=== PATIENT | male | born 1955 | race Caucasian/White ===

== ENCOUNTER 2016-07-13 05:59 | Day surgery (SDC) | payer BC ==
[2016-07-13] MEDS ORDERED: LACTATED RINGERS 1,000 ML ONE (06:46)
[2016-07-13] MEDS ORDERED: MIDAZOLAM INJ 5 MG/5 ML VIAL ONE (07:38)
--- NOTE | 2016-07-13 08:38 | OP ---
DATE OF PROCEDURE: 07/13/16 PREPROCEDURE DIAGNOSIS: 1. History of colonic polyp. POSTPROCEDURE DIAGNOSIS: 1. History of colonic polyp. PROCEDURE: 1. Colonoscopy to the cecum. SURGEON: Xu Hartman MD. ANESTHESIA: Monitored anesthesia care. FINDINGS: With the patient under adequate sedation, digital exam showed normal anal canal with no rectal masses. Normal sized prostate. The rectum was unremarkable. The sigmoid colon showed no clinically significant diverticulosis. Descending colon normal, splenic flexure normal, transverse colon normal, ascending colon and cecum were reached with ileocecal valve visualized. The appendix opening was identified. No lesions seen in the entire colon. Careful examination of both flexure areas did not show any abnormality. The colon preparation was good. Examination of the colon was done to good advantage. Total scope withdrawal time was 6 minutes. IMPRESSION: Totally normal colonoscopy with no evidence of recurrent colonic polyp. RECOMMENDATION: Followup colonoscopy in 5 to 7 years. #[id number] cc: MD Xu Artis MD MTDD
[2016-07-13 09:16] VITALS: BP 150/82; TEMP 97.6; O2SAT 95
[2016-07-13] MEDS ORDERED: LIDOCAINE 1% 10 ML VIAL INJ ONE (12:00)
[2016-07-13] MEDS ORDERED: PROPOFOL 200 MG/20 ML VIAL IV ONE (12:00)
== END 2016-07-13 08:55 | disposition home or self-care (01) ==
LOC: AMB 05:59
PROVIDERS: ATTEND Internal Medicine Gastroenterology
DX: Z12.11 Encounter for screening for malignant neoplasm of colon (principal); I10 Essential (primary) hypertension; E78.00 Pure hypercholesterolemia, unspecified; E11.9 Type 2 diabetes mellitus without complications; K21.9 Gastro-esophageal reflux disease without esophagitis; Z86.010 Personal history of colon polyps; Z88.5 Allergy status to narcotic agent; Z88.8 Allergy status to other drugs, medicaments and biological substances; Z79.899 Other long term (current) drug therapy

== ENCOUNTER → 2016-08-13 | Outpatient (CLI) | payer BC | END | disposition home or self-care (01) | LOC: GMAL 06:44 | PROVIDERS: ATTEND Family Medicine | DX: I10 Essential (primary) hypertension (principal); E11.9 Type 2 diabetes mellitus without complications; E29.1 Testicular hypofunction ==

== ENCOUNTER → 2016-08-23 | Outpatient (CLI) | payer BC | END | disposition home or self-care (01) | LOC: GMAL 16:56 | PROVIDERS: ATTEND Family Medicine | DX: R97.20 Elevated prostate specific antigen [PSA] (principal) ==

== ENCOUNTER → 2016-11-12 | Outpatient (CLI) | payer BC | END | disposition home or self-care (01) | LOC: LAB 07:16 | PROVIDERS: ATTEND Family Medicine | DX: E78.2 Mixed hyperlipidemia (principal); I10 Essential (primary) hypertension; E11.9 Type 2 diabetes mellitus without complications; E55.9 Vitamin D deficiency, unspecified ==

== ENCOUNTER → 2017-03-18 | Outpatient (CLI) | payer BC | END | disposition home or self-care (01) | LOC: GMAL 07:13 | PROVIDERS: ATTEND Family Medicine | DX: E78.2 Mixed hyperlipidemia (principal); I10 Essential (primary) hypertension; E11.9 Type 2 diabetes mellitus without complications ==

== ENCOUNTER → 2017-07-22 | Outpatient (CLI) | payer BC | END | disposition home or self-care (01) | LOC: LAB.O 07:22 | PROVIDERS: ATTEND Family Medicine | DX: E78.2 Mixed hyperlipidemia (principal); I10 Essential (primary) hypertension; E11.9 Type 2 diabetes mellitus without complications ==

== ENCOUNTER 2017-10-15 15:05 | Emergency (ER) | payer BC ==
[2017-10-15] MEDS ORDERED: ATORVASTATIN 20 MG TAB PO ONE (15:18)
[2017-10-15] MEDS ORDERED: ASPIRIN TABLET 325 MG TAB PO ONE (15:18)
[2017-10-15] MEDS ORDERED: METOPROLOL TARTRATE 50 MG TAB PO ONE (15:18)
[2017-10-15] MEDS: NITROGLYCERIN 0.4 MG 25 EA TAB SL ONE ×2 (15:22→15:57)
[2017-10-15] MEDS ORDERED: KETOROLAC TROMETHAMINE INJ 30 MG/ML VIAL IV ONE (15:45)
--- NOTE | 2017-10-15 15:59 | RAD ---
PROCEDURE: XR CHEST 1 VIEW HISTORY: chest pain COMPARISON: 07/12/2016 TECHNIQUE: Single projection of the chest was done. FINDINGS: The lung banuelos are well inflated . There are no discrete airspace infiltrates, pneumothoraces or pleural effusions. The pulmonary vascularity is normal. The cardiomediastinal silhouette is unremarkable for patient's age and sex. IMPRESSION: There is no acute pleural-parenchymal process seen in the imaged lung banuelos. Location of Interpretation: Teler[facility]iology Electronically signed by: Jignesh Trevizo MD 10/15/2017 3:58 PM CDT Workstation: [id number]
[2017-10-15] MEDS ORDERED: ALUM & MAG HYDROX-SIMETHICONE 30 ML, LIDOCAINE VISCOUS 2% 15 ML PO ONE ×2 (16:11)
[2017-10-15] MEDS ORDERED: ALUM & MAG HYDROX-SIMETHICONE 30 ML UD ONE (16:56)
[2017-10-15] MEDS ORDERED: LIDOCAINE HCL 2% (MOUTH-THROAT) 15 ML UD ONE (16:56)
--- NOTE | 2017-10-15 17:32 | ED.PDOC ---
History of Present Illness - General Chief Complaint: Chest Pain/MS Time Seen by Provider: 10/15/17 15:17 Source: patient, family Exam Limitations: no limitations - History of Present Illness Initial Comments: Patient comes in with R sided sharp chest pain at the base of his costal angle since about 11 am. Pain is there constantly but at times worsens to moderate/ severe. Patient has some associated nausea and shortness of breath. He had similar illness several years ago and work up did not find cause. He does have known gallbladder stones but in the past it has not felt like this. He has never had heart problems. He has DM, HTN, Hyperlipidemia but no family history of cardiac disease. He has no cough, congestion, fever, chills, or recent injury to the chest. Timing/Duration: 4-6 hours Severity: moderate Location: other - RL chest wall Activities at Onset: rest Prior Chest Pain/Cardiac Workup: no prior chest pain Improving Factors: nothing Worsening Factors: movement Nitro Today/Relief: provided by ED, no relief Aspirin Treatment Today: provided by ED Associated Symptoms: nausea/vomiting, shortness of breath Allergies/Adverse Reactions: Allergies Morphine and Related Adverse Reaction (Intermediate, Verified 03/23/16 10:42) Nausea/Vomiting prolonged nausea and vomiting Opioids Adverse Reaction (Intermediate, Uncoded 03/23/16 10:55) Nausea/Vomiting Prolonged nausea and vomiting Home Medications: Ambulatory Orders Glimepiride [Amaryl] 4 mg PO BID 03/22/16 Lisinopril 10 mg PO DAILY 03/22/16 Sitagliptin-Metformin HCl [Janumet] 1 tab PO BID 03/22/16 Doxycycline (Monohydrate) [Doxycycline Monohydrate] 100 mg PO BID 07/12/16 Levothyroxine Sodium 50 mcg PO DAILY 07/12/16 Review of Systems - Review of Systems Constitutional: States: see HPI. Denies: chills, fever EENTM: States: no symptoms reported Respiratory: States: short of breath. Denies: cough, wheezing Cardiology: States: chest pain. Denies: edema, palpitations, syncope Gastrointestinal/Abdominal: States: nausea. Denies: abdominal pain, constipation, diarrhea, vomiting Genitourinary: States: no symptoms reported Musculoskeletal: States: no symptoms reported Skin: States: no symptoms reported Past Medical History (General) - Patient Medical History Hx Congestive Heart Failure: No Hx Diabetes: Yes Hx MRSA: No Physical Exam - Physical Exam General Appearance: Alert, Anxious Eyes, Ears, Nose, Throat Exam: PERRL/EOMI, normal ENT inspection, TMs normal, pharynx normal Neck: non-tender, full range of motion, supple, normal inspection Respiratory: chest non-tender, lungs clear, normal breath sounds, no respiratory distress, no accessory muscle use Cardiovascular/Chest: normal peripheral pulses, regular rate, rhythm, no edema, no gallop, no JVD Peripheral Pulses: radial,right: 2+ Gastrointestinal/Abdominal: normal bowel sounds, soft, rebound, tenderness, hernia - mildly tender to palpation on RUQ Extremity: normal range of motion, non-tender, no pedal edema Neurologic: alert, oriented x 3 Progress - Progress Progress: 10/15/17 18:44 10/15/17 15:30 EKG STAT Laboratory Results WBC 10.9 K/mm3 (4.8-10.8) H 10/15/17 15:38 RBC 5.83 M/mm3 (4.70-6.10) 10/15/17 15:38 Hgb 17.4 gm/dL (14.0-18.0) 10/15/17 15:38 Hct 50.8 % (42.0-52.0) 10/15/17 15:38 MCV 87.1 fl (80.0-94.0) 10/15/17 15:38 MCH 29.9 pg (27.0-31.0) 10/15/17 15:38 MCHC 34.3 g/dL (33.0-37.0) 10/15/17 15:38 RDW 13.5 % (11.5-14.5) 10/15/17 15:38 Plt Count 253 K/mm3A (130-400) 10/15/17 15:38 MPV 8.1 fl (7.40-10.4) 10/15/17 15:38 Absolute Neuts (auto) 9.00 K/uL (1.8-6.8) H 10/15/17 15:38 Absolute Lymphs (auto) 1.10 K/uL (1.0-3.4) 10/15/17 15:38 Absolute Monos (auto) 0.60 K/uL (0.2-0.8) 10/15/17 15:38 Absolute Eos (auto) 0.20 K/uL (0.0-0.4) 10/15/17 15:38 Absolute Basos (auto) 0.00 K/uL (0.0-0.1) 10/15/17 15:38 Neutrophils % 82.2 % (42.0-78.0) H 10/15/17 15:38 Lymphocytes % 9.6 % (20.0-50.0) L 10/15/17 15:38 Monocytes % 5.9 % (2.0-9.0) 10/15/17 15:38 Eosinophils % 2.0 % (1.0-5.0) 10/15/17 15:38 Basophils % 0.3 % (0.0-2.0) 10/15/17 15:38 PT 10.9 SECONDS (9.4-12.5) 10/15/17 15:38 INR 0.940 10/15/17 15:38 PTT (SP) 36.1 SECONDS (25.1-36.5) 10/15/17 15:38 D-Dimer, Quantitative < 230 ng/mL (0-230) 10/15/17 15:38 Sodium 136 mmol/L (135-145) 10/15/17 15:38 Potassium 3.9 mmol/L (3.6-5.0) 10/15/17 15:38 Chloride 100 mmol/L (101-111) L 10/15/17 15:38 Carbon Dioxide 27 mmol/L (21-31) 10/15/17 15:38 Anion Gap 12.9 (12-18) 10/15/17 15:38 BUN 13 mg/dL (7-18) 10/15/17 15:38 Creatinine 0.84 mg/dL (0.6-1.3) 10/15/17 15:38 BUN/Creatinine Ratio 15.5 (10-20) 10/15/17 15:38 Random Glucose 331 mg/dL (70-105) H 10/15/17 15:38 Serum Osmolality 285.0 mOsm/L (275-295) 10/15/17 15:38 Calcium 9.4 mg/dL (8.4-10.2) 10/15/17 15:38 Magnesium 1.8 mg/dL (1.8-2.5) 10/15/17 15:38 Creatine Kinase 94 IU/L (38-174) 10/15/17 18:03 CK-MB (CK-2) 5.6 ng/mL (0.0-4.4) H* 10/15/17 18:03 CK-MB (CK-2) % Not Reportable 10/15/17 15:38 Troponin I 0.03 ng/mL (0.01-0.05) 10/15/17 18:03 10/15/17 18:44 Nitro did not help pain but GI cocktail did. Discussed abnormal EKG with patient and likelihood that he has had some damage done at some time. However, cardiac enzymes are negative x 2 here and pain is now gone. He was given EKG copy to to take to his PCP to discuss Cardiology work up. Departure - Departure Clinical Impression: Biliary colic Disposition: Discharge to Home or Self Care Condition: Good Departure Forms: ED Discharge - Pt. Copy, Patient Portal Self Enrollment Instructions: DI for Chest Pain Diet: diabetic diet Referrals: Daniel Miranda III, MD [Primary Care Provider] - 1-2 Weeks Home Medications: Ambulatory Orders Glimepiride [Amaryl] 4 mg PO BID 03/22/16 Lisinopril 10 mg PO DAILY 03/22/16 Sitagliptin-Metformin HCl [Janumet] 1 tab PO BID 03/22/16 Doxycycline (Monohydrate) [Doxycycline Monohydrate] 100 mg PO BID 07/12/16 Levothyroxine Sodium 50 mcg PO DAILY 07/12/16 Additional Instructions: Follow up in 3-4 days with PCP to discuss possible work up for abnormal EKG. However, enzymes negative x 2 here and chest pain consistent with billiary collic. Patient has known cholelithiasis. Pain did not respond to nitro but did go away with GI cocktail. Patient to return to ER for return of pain, shortness of breath, diaphoresis, intractable emesis.
[2017-10-15 19:09] VITALS: BP 132/70; O2SAT 96
[2017-10-15 19:19] VITALS: TEMP 98.8
== END 2017-10-15 19:05 | disposition home or self-care (01) ==
LOC: ER 15:05
DX: K80.50 Calculus of bile duct without cholangitis or cholecystitis without obstruction (principal); R94.31 Abnormal electrocardiogram [ECG] [EKG]; E11.9 Type 2 diabetes mellitus without complications; I10 Essential (primary) hypertension; E78.5 Hyperlipidemia, unspecified
CPT/HCPCS: 36415; 71045; 80048; 82550; 82553; 84484; 85025; 85379; 85610; 85730; 93005; J1885

== ENCOUNTER → 2017-10-18 | Outpatient (CLI) | payer BC ==
--- NOTE | 2017-10-18 10:24 | US ---
EXAM DESCRIPTION: Gall Bladder CLINICAL HISTORY: CALC OF GB W/O CHOLECYSTITIS W/O OBST COMPARISON: None Available. TECHNIQUE: Right upper quadrant ultrasound FINDINGS: Pancreas: Pancreatic bed is obscured by overlying bowel gas. No fluid collection is seen in the expected location of the pancreas. Aorta/inferior vena cava: No aortic aneurysm. Inferior vena cava is visible by the liver. Bowel gas obscures much of the length of these vessels. Liver: The liver is coarse in texture with increased echogenicity consistent with diffuse hepatic steatosis. There is sparing near the gallbladder. No focal liver lesion or intrahepatic bile duct dilatation. No liver surface irregularity. Normal appearance of the portal vein and hepatic veins. Gallbladder: Gallbladder is abnormal containing small shadowing stones within the lumen. Gallbladder wall is thickened measured at 6 mm. Sonographic Cruz sign is not known but these findings are worrisome for acute cholecystitis. For clinically equivocal cases, radionuclide hepatobiliary scan may be helpful. Common bile duct: Normal caliber measuring 7.4 mm. Only a short segment of the duct is visible. Bowel gas obscures the distal duct. No stone is seen within the lumen. Right kidney: Renal length is 11.1 cm. Normal cortical echogenicity. Cortical thickness is normal. No hydronephrosis is seen. No renal mass or shadowing calculus. Sonographic Cruz sign was reported as negative. IMPRESSION: Gallstones with thick walled gallbladder. See above. Diffuse hepatic steatosis. Electronically signed by: Geraldo Meredith MD 10/18/2017 10:22 AM CDT
== END ==
LOC: US 07:56
PROVIDERS: ATTEND Nurse Practitioner Family
DX: K80.20 Calculus of gallbladder without cholecystitis without obstruction (principal)

== ENCOUNTER 2017-10-21 00:29 | Emergency (ER) | payer BC ==
[2017-10-21] MEDS ORDERED: SODIUM CHLORIDE 0.9% 1000ML 1,000 ML IVS ONE ×2 (00:48→01:45)
[2017-10-21] MEDS ORDERED: KETOROLAC TROMETHAMINE INJ 30 MG/ML VIAL IV ONE (00:48)
[2017-10-21] MEDS ORDERED: ONDANSETRON ODT 8 MG TAB SL ONE (00:48)
[2017-10-21] MEDS ORDERED: PIPERACILLIN/TAZOBACTAM 4.5 GM in SODIUM CHLORIDE 0.9% 100ML 100 ML IVPB ONE (01:14)
[2017-10-21] MEDS ORDERED: PIPERACILLIN/TAZOBACTAM 2.25 GM VIAL IVPB ONE (01:29)
[2017-10-21] MEDS ORDERED: SODIUM CHLORIDE 0.9% 100ML 100 ML IVPB ONE (01:29)
--- NOTE | 2017-10-21 01:42 | RAD ---
EXAM: TWO VIEW SINGLE and UPRIGHT ABDOMEN AND PA CHEST RADIOGRAPHS CLINICAL INDICATION: Abdominal pain for 4 days. COMPARISON: No recent comparisons are available. FINDINGS: Cardiac size and pulmonary vasculature are normal. Lungs are clear. No pleural effusions or pneumothorax. Bones of the chest are intact on this single view. Several loops of gas-filled moderately distended bowel in the mid to left abdomen suspicious for reactive small bowel ileus secondary to underlying inflammatory process. No mechanical bowel obstruction or free peritoneal gas. IMPRESSION: 1. Suspect left abdominal reactive small bowel ileus. Postcontrast abdomen and pelvic CT would prove useful for further evaluation of possible underlying abdominal inflammatory process. 2. No mechanical bowel obstruction or extraluminal bowel gas. 3. Normal PA chest radiograph. Electronically signed by: Jose Raul Berrios MD 10/21/2017 1:41 AM CDT
[2017-10-21] MEDS ORDERED: INSULIN LISPRO 100 UNITS/ML PEN SUBCU ONE (01:43)
--- NOTE | 2017-10-21 02:30 | CT ---
NONCONTRAST ABDOMEN AND PELVIC CT EXAMINATION. HISTORY: Right upper quadrant abdominal pain. Suspect biliary disease. COMPARISONS: Today's abdomen radiographs. Gallbladder ultrasound of October 2017. PROCEDURE: Using helical technique, thin section axial images were performed through the abdomen and pelvis without the administration of intravenous or oral contrast material. FINDINGS: There are calcified stones and gas within the fluid-filled inflamed gallbladder. No intrahepatic biliary ductal dilatation. The pancreas appears grossly normal on this noncontrast examination. The adrenal glands, kidneys, renal collecting systems, ureters and urinary bladder are grossly normal on this noncontrast examination. No evidence of appendicitis, diverticulitis, inflammatory bowel disease, bowel obstruction, extraluminal bowel gas or retroperitoneal hemorrhage. No ascites, free pelvic fluid or evidence of intra-abdominal abscess on this noncontrast examination. The liver, spleen, pancreas, stomach and duodenum are grossly normal on this noncontrast examination. Mild atherosclerotic calcification at the aortic bifurcation without aneurysm. Greatest AP diameter of the infrarenal abdominal aorta measures 1.9 cm Bones appear normal for age. IMPRESSION: 1. Cholelithiasis with emphysematous cholecystitis. Findings discussed with Dr. Euceda on 10/21/2017 at 0230 hours central time. This exam was performed according to our departmental dose-optimization program, which includes automated exposure control, adjustment of the mA and/or kV according to patient size and/or use of iterative reconstruction technique. Electronically signed by: Jose Raul Berrios MD 10/21/2017 2:29 AM CDT
[2017-10-21] MEDS ORDERED: metroNIDAZOLE IV PREMIX 500MG 500 MG in PREMIX BAG 1 BAG IVPB ONE (02:33)
[2017-10-21] MEDS ORDERED: metroNIDAZOLE IV PREMIX 500MG 100 ML IVPB ONE (02:35)
--- NOTE | 2017-10-21 02:49 | ED.PDOC ---
History of Present Illness - General Chief Complaint: Abdominal Pain Stated Complaint: abd pains, distension Time Seen by Provider: 10/21/17 00:32 Source: patient Exam Limitations: no limitations - History of Present Illness Initial Comments: the patient is 62-year-old male presenting to the emergency room secondary to abdominal pain that has been ongoing for the better part of a week. He was seen here approximately 5 days ago and had a White blood cell count of 10,000 at the time. He has known gallstones that were diagnosed more than a year ago apparently. He has had several episodes of nausea and vomiting today. he is unsure what his blood sugars have been. He is a type II diabetic. He has taken very little oral intake today. He is diaphoretic and obviously uncomfortable upon arrival here. He is tachycardic with a heart rate in the 120s. He has diffuse peritonitis on exam. He is obese. He does have an umbilical hernia. no history of any pancreatitis. No jaundice. Eating does seem to make symptoms worse. Timing/Duration: unsure Severity: severe Improving Factors: nothing Worsening Factors: eating Associated Symptoms: diaphoresis, fever/chills, loss of appetite, malaise, nausea/vomiting, weakness Allergies/Adverse Reactions: Allergies Morphine and Related Adverse Reaction (Intermediate, Verified 03/23/16 10:42) Nausea/Vomiting prolonged nausea and vomiting Opioids Adverse Reaction (Intermediate, Uncoded 03/23/16 10:55) Nausea/Vomiting Prolonged nausea and vomiting Home Medications: Ambulatory Orders Glimepiride [Amaryl] 4 mg PO BID 03/22/16 Lisinopril 10 mg PO DAILY 03/22/16 Sitagliptin-Metformin HCl [Janumet] 1 tab PO BID 03/22/16 Doxycycline (Monohydrate) [Doxycycline Monohydrate] 100 mg PO BID 07/12/16 Levothyroxine Sodium 50 mcg PO DAILY 07/12/16 Review of Systems - Review of Systems Constitutional: States: diaphoresis, malaise EENTM: States: no symptoms reported Respiratory: States: no symptoms reported Cardiology: States: no symptoms reported Gastrointestinal/Abdominal: States: abdominal pain, nausea, vomiting Genitourinary: States: no symptoms reported Musculoskeletal: States: no symptoms reported Skin: States: no symptoms reported Neurological: States: no symptoms reported Endocrine: States: no symptoms reported All other Systems: No Change from Baseline Past Medical History (General) - Patient Medical History Hx Stroke: No Hx Cardiac Disorders: Yes - High cholesterol Hx Congestive Heart Failure: No Hx Hypertension: Yes Hx Thyroid Disease: Yes Hx Diabetes: Yes Hx MRSA: No Surgical History: other - Vaccination History Hx Influenza Vaccination: No Hx Pneumococcal Vaccination: No - Social History Hx Tobacco Use: No Hx Alcohol Use: Yes Hx Substance Use Treatment: No Family Medical History - Family History Father Family History: Unknown Physical Exam - Physical Exam General Appearance: Alert, Comfortable, No apparent distress Eye Exam: bilateral normal Ears, Nose, Throat: hearing grossly normal, normal ENT inspection, normal pharynx Neck: full range of motion, supple Respiratory: lungs clear, normal breath sounds, no respiratory distress, no accessory muscle use Cardiovascular/Chest: normal peripheral pulses, no edema, tachycardia Peripheral Pulses: radial,right: 2+, radial,left: 2+, dorsalis pedis,right: 2+, dorsalis pedis,left: 2+ Gastrointestinal/Abdominal: other - mildly distended. Morbidly obese. He does have tenderness to palpation diffusely over his abdomen. Rectal Exam: deferred Back Exam: normal inspection, no vertebral tenderness Extremity: normal range of motion, non-tender, normal inspection, no pedal edema , normal capillary refill Neurologic: senior director II-XII nml as tested, alert, normal mood/affect, oriented x 3 Skin Exam: diaphoresis Comments: Vital Signs - 24 hr 10/21/17 10/21/17 10/21/17 00:50 00:56 01:29 Temperature 97.8 F Pulse Rate [ 122 H 121 H left] Respiratory 22 22 22 Rate Blood Pressure 117/67 107/59 [left] O2 Sat by Pulse 96 95 Oximetry 10/21/17 02:47 Temperature Pulse Rate [ 110 H left] Respiratory 22 Rate Blood Pressure 109/68 [left] O2 Sat by Pulse 95 Oximetry Progress - Progress Progress: 10/21/17 02:52 the patient is a 62-year-old male presenting with acute emphysematous cholecystitis that is becoming septic. The patient has received 2 L of IV fluids and a dose of Zosyn. He is currently receiving Flagyl additionally. He is nothing by mouth. He is refusing opiate pain medications at this time. Nausea appears to be controlled. He is tachycardic but has not exhibited any hypotension to this point. Blood cultures have been done. He does exhibit a right bundle branch block on his EKG. White blood cell count is markedly elevated at 32,000 and his lactic acid is elevated at 5. The patient is being transferred for evaluation with surgery. Additionally the patient is markedly hyperglycemic. He has received 15 units of insulin lispro here. We are currently rechecking a blood sugar. he has as of yet, not received any steroid dosing in light of the hyperglycemia. Transferred for higher level of care. critical care time spent in treatment of this patient's acute processes along with arrangements for care and transfer to higher level of care excluding otherwise billable procedures is 40 minutes. - Results/Orders Results/Orders: 10/21/17 01:05 BLOOD CULTURE Stat 10/21/17 02:00 EKG STAT sinus tachycardia at a rate of 112 bpm. He does have a right bundle branch block. No definitive acute ST segment changes can otherwise be interpreted. There is a left axis deviation. CT scan abdomen and pelvis shows a large edematous emphysematous acute cholecystitis. No evidence of any obstruction in the extrahepatic ducts. Pancreas appears essentially normal. See report for full details. Laboratory Results - last 24 hr 10/21/17 10/21/17 10/21/17 01:00 01:00 01:00 WBC 32.3 H* RBC 5.34 Hgb 15.7 Hct 46.2 MCV 86.6 MCH 29.4 MCHC 34.0 RDW 13.6 Plt Count 327 MPV 8.0 Absolute Neuts (auto) Not Reportable Absolute Lymphs (auto) Not Reportable Absolute Monos (auto) Not Reportable Absolute Eos (auto) Not Reportable Neutrophils % Not Reportable Neutrophils % (Manual) 87.0 H Lymphocytes % Not Reportable Lymphocytes % (Manual) 3.0 Monocytes % Not Reportable Monocytes % (Manual) 2.0 Eosinophils % Not Reportable Basophils % Not Reportable Band Neutrophils 8.0 H Platelet Estimate Normal Normal RBC Morphology Normal rbc morph PT 14.0 H INR 1.210 PTT (SP) 32.4 D-Dimer, Quantitative 2027 H* Sodium 131 L Potassium 3.6 Chloride 97 L Carbon Dioxide 19 L Anion Gap 18.6 H BUN 23 H Creatinine 2.04 H BUN/Creatinine Ratio 11.3 Random Glucose 468 H* Serum Osmolality 286.7 Lactic Acid Calcium 8.2 L Total Bilirubin 1.2 H AST 24 ALT 25 Alkaline Phosphatase 94 Creatine Kinase 80 CK-MB (CK-2) 3.6 CK-MB (CK-2) % Not Reportable Troponin I 0.06 H B-Natriuretic Peptide 45.0 Serum Total Protein 6.4 Albumin 3.1 L Globulin 3.3 Albumin/Globulin Ratio 0.9 L Amylase 21 L Lipase 20 L Urine Color Urine Appearance Urine pH Ur Specific [place] Urine Protein Urine Glucose (UA) Urine Ketones Urine Blood Urine Nitrite Urine Bilirubin Urine Urobilinogen Ur Leukocyte Esterase Urine RBC Urine WBC Ur Epithelial Cells Calcium Oxalate Crystal Amorphous Sediment Urine Bacteria Hyaline Casts Fine Granular Casts Urine Mucus 10/21/17 10/21/17 01:25 01:50 WBC RBC Hgb Hct MCV MCH MCHC RDW Plt Count MPV Absolute Neuts (auto) Absolute Lymphs (auto) Absolute Monos (auto) Absolute Eos (auto) Neutrophils % Neutrophils % (Manual) Lymphocytes % Lymphocytes % (Manual) Monocytes % Monocytes % (Manual) Eosinophils % Basophils % Band Neutrophils Platelet Estimate Normal RBC Morphology PT INR PTT (SP) D-Dimer, Quantitative Sodium Potassium Chloride Carbon Dioxide Anion Gap BUN Creatinine BUN/Creatinine Ratio Random Glucose Serum Osmolality Lactic Acid 5.0 H* Calcium Total Bilirubin AST ALT Alkaline Phosphatase Creatine Kinase CK-MB (CK-2) CK-MB (CK-2) % Troponin I B-Natriuretic Peptide Serum Total Protein Albumin Globulin Albumin/Globulin Ratio Amylase Lipase Urine Color Anyi Urine Appearance Cloudy Urine pH 5.0 Ur Specific [place] >= 1.030 Urine Protein 100 H Urine Glucose (UA) 100 H Urine Ketones 15 H Urine Blood Trace-lysed H Urine Nitrite Negative Urine Bilirubin Moderate Urine Urobilinogen 1.0 Ur Leukocyte Esterase Negative Urine RBC 0-1 Urine WBC 5-10 H Ur Epithelial Cells 1-3 Calcium Oxalate Crystal 1+ Amorphous Sediment 1+ Urine Bacteria 1+ Hyaline Casts 1-3 Fine Granular Casts 1-3 Urine Mucus Trace Departure - Departure Clinical Impression: Emphysematous cholecystitis, Hyperglycemia Sepsis Qualifiers: Sepsis type: sepsis due to unspecified organism Qualified Code(s): A41.9 - Sepsis, unspecified organism Disposition: Transfer to Hospital Referrals: Daniel Miranda III, MD [Primary Care Provider] - 1-2 Weeks Home Medications: Ambulatory Orders Glimepiride [Amaryl] 4 mg PO BID 03/22/16 Lisinopril 10 mg PO DAILY 03/22/16 Sitagliptin-Metformin HCl [Janumet] 1 tab PO BID 03/22/16 Doxycycline (Monohydrate) [Doxycycline Monohydrate] 100 mg PO BID 07/12/16 Levothyroxine Sodium 50 mcg PO DAILY 07/12/16 Transfer to Outside Facility - Transfer Information Accepting Provider:: dr daley Accepting Facility: [facility] Reason for Transfer: required specialist not available
[2017-10-21] MEDS ORDERED: INSULIN, REG.(HUMAN) 100 U/ML VIAL IV ONE (03:08)
[2017-10-21 03:23] VITALS: BP 117/61; TEMP 97.5; O2SAT 94
== END 2017-10-21 03:30 | disposition short-term general hospital (02) ==
LOC: ER 00:29
DX: A41.9 Sepsis, unspecified organism (principal); K80.00 Calculus of gallbladder with acute cholecystitis without obstruction; E11.65 Type 2 diabetes mellitus with hyperglycemia; I10 Essential (primary) hypertension; E07.9 Disorder of thyroid, unspecified; E78.00 Pure hypercholesterolemia, unspecified; Z79.84 Long term (current) use of oral hypoglycemic drugs
CPT/HCPCS: 36415; 36416; 74019; 74176; 80053; 81001; 82150; 82550; 82553; 82948; 83605; 83690; 83880; 84484; 85025; 85379; 85610; 85730; 87040; 93005; J1815; J1885; J2543; J3490; J7030; J7050

== ENCOUNTER → 2018-01-13 | Outpatient (CLI) | payer BC | LOC: LAB.O 07:01 | PROVIDERS: ATTEND Family Medicine | DX: I10 Essential (primary) hypertension (principal); E11.9 Type 2 diabetes mellitus without complications; E78.2 Mixed hyperlipidemia; E03.9 Hypothyroidism, unspecified; Z12.5 Encounter for screening for malignant neoplasm of prostate ==

== ENCOUNTER → 2018-05-12 | Outpatient (CLI) | payer BC | LOC: LAB.O 07:19 | PROVIDERS: ATTEND Family Medicine | DX: E11.42 Type 2 diabetes mellitus with diabetic polyneuropathy (principal); E55.9 Vitamin D deficiency, unspecified; I10 Essential (primary) hypertension; E78.2 Mixed hyperlipidemia; E53.8 Deficiency of other specified B group vitamins ==

== ENCOUNTER → 2018-07-21 | Outpatient (CLI) | payer BC | LOC: LAB.O 07:18 | PROVIDERS: ATTEND Family Medicine | DX: I10 Essential (primary) hypertension (principal); E78.2 Mixed hyperlipidemia ==

== ENCOUNTER 2018-07-27 10:16 | Inpatient (IN) | payer BC ==
--- NOTE | 2018-07-27 10:41 | HP ---
SUPERVISING PHYSICIAN: Jarad Vincent M.D. CHIEF COMPLAINT: Pain to his left face. HISTORY OF PRESENT ILLNESS: This is a 63 year-old male patient who had acne on his left lip. He said he "popped it" on Monday. On Monday there was a lot of redness and drainage as well as some swelling. He saw Dr. Miranda, his primary care physician, on Monday and he was put on Bactrim, and was told to return to the clinic if it was not better in [address] Miranda today and the infection was worse. Dr. Miranda sent the patient over here for IV therapy and cellulitis of the left side of the face failed outpatient therapy. The patient said that he had nausea but no vomiting. He had no fever, but he had a lot of left sided facial pain and it was difficult to chew. He was admitted to the hospital in stable condition. PAST MEDICAL HISTORY: 1. Gastroesophageal reflux disease. 2. Hyperlipidemia. 3. Hypothyroidism. 4. Obstructive sleep apnea. 5. Testosterone deficiency. 6. Hypertension. 7. Type 2 diabetes. 8. Fatty liver disease. PAST SURGICAL HISTORY: 1. Tonsillectomy. 2. [place] teeth extraction. 3. Left surgical hand repair. 4. Left carpal tunnel release. 5. Laparoscopic cholecystectomy for gangrenous gallbladder in 10/2017. OUTPATIENT MEDICATIONS: 1. Atorvastatin. 2. Synthroid. 3. Glimepiride. 4. Metformin. 5. Losartan. 6. Nitroglycerin. 7. Testosterone Cypionate. ALLERGIES: OPIOIDS AND LISINOPRIL. FAMILY HISTORY: Positive for prostate cancer and hypertension. SOCIAL HISTORY: He lives in [place]. He works at a [employer] in [place]. He is . He has 1 child. He has a past history of smoking cigars and pipes, but he quit in 2013. He drinks alcoholic beverages rarely. He denies any illicit drug use. REVIEW OF SYSTEMS: Negative except as per History of Present Illness. PHYSICAL EXAMINATION: VITAL SIGNS: Temperature 98, heart rate 85, blood pressure 143/82, respiratory rate 20, O2 sat 95% on room air. GENERAL: This is an obese 63 year-old male patient who is lying in his hospital bed. He is in no acute distress. HEENT: Normocephalic and atraumatic. Pupils are equal and reactive. Oropharynx is clear. NECK: Supple without mass. RESPIRATORY: Essentially clear to auscultation bilaterally. CHEST: There is equal rise and fall of the chest with inspiration and expiration. CARDIOVASCULAR: Regular rate and rhythm. GASTROINTESTINAL: Abdomen is soft, nondistended, non-tender. Bowel sounds are positive. EXTREMITIES: No clubbing, cyanosis or edema. NEUROLOGIC: He is awake, alert and oriented times three. Cranial nerves II-XII are grossly intact. SKIN: There is an erythematous area to the left side of the patient's lip and lower face that is quite edematous. The area of erythema is approximately 3 cm. It does have a small pustule that is open and draining a small amount of purulent fluid. It is tender to palpation. LABORATORY: WBCs are 8.2, hemoglobin 15.4, hematocrit 45.5, platelets 254. ESR is 20. Electrolytes are basically within normal limits with C reactive protein of 3. Glucose 210. All other labs and films have been reviewed via the EMR. ASSESSMENT: 1. Cellulitis of the face failed outpatient treatment. 2. Gastroesophageal reflux disease. 3. Hypothyroidism. 4. Hypertension. 5. Diabetes mellitus type 2. 6. Obstructive sleep apnea. 7. Hyperlipidemia. PLAN: We will admit the patient to the hospital. I will give him 1 liter of IV fluids and will start him on vancomycin per Pharmacy protocol. I have ordered blood cultures as well as culture of the wound. I will also get a CT scan of the face in the morning to rule out any underlying issues. He is on blood sugar checks a.c. and h.s. with sliding scale NovoLog insulin coverage. His home medications will be restarted. Will monitor his cultures closely so he can be discharged on an oral antibiotic. We will continue to monitor the patient closely and follow as needed. [id number]
[2018-07-27] MEDS ORDERED: SODIUM CHLORIDE 0.9% (FLUSH) 10 ML SYG IV PRN (11:51)
[2018-07-27] MEDS ORDERED: ONDANSETRON INJ 4 MG/2 ML VIAL IV PRN (11:51)
[2018-07-27] MEDS ORDERED: ACETAMINOPHEN 325 MG TAB PO PRN (11:51)
[2018-07-27] MEDS ORDERED: DEXTROSE 50% 25 GM/50 ML SYG IV PRN (11:55)
[2018-07-27] MEDS ORDERED: GLUCAGON INJ 1 MG VIAL SUBCU PRN (11:55)
[2018-07-27] MEDS ORDERED: IV SET AND CAP CHANGE INJ INJ SCH (12:00)
[2018-07-27] MEDS ORDERED: VANCOMYCIN PER PHARMACY INJ SCH (12:00)
[2018-07-27] MEDS ORDERED: VANCOMYCIN HCL INJ 1,000 MG VIAL IVPB ONE ×2 (13:01→19:29)
[2018-07-27] MEDS ORDERED: SODIUM CHLORIDE 0.9% 500ML 500 ML ONE ×3 (13:01→19:29)
[2018-07-27] MEDS: VANCOMYCIN HCL INJ 2,000 MG in SODIUM CHLORIDE 0.9% 500ML 500 ML IVPB SCH (13:03)
[2018-07-27] MEDS: PANTOPRAZOLE SODIUM IV 40 MG VIAL IV SCH (13:05)
[2018-07-27] MEDS ORDERED: ASPIRIN/ACETAMINOPHEN/CAFFEINE 1 EA TAB PO ONE (14:22)
[2018-07-27] MEDS: ASPIRIN/ACETAMINOPHEN/CAFFEINE 1 EA TAB PO PRN ×2 (14:24→21:02)
[2018-07-27] MEDS ORDERED: ASPIRIN/ACETAMINOPHEN/CAFFEINE 1 EA TAB PO PRN (18:17)
[2018-07-27] MEDS: INSULIN LISPRO 100 UNITS/ML PEN SUBCU SCH ×2 (18:21→21:11)
[2018-07-27] MEDS ORDERED: SODIUM CHLORIDE 0.45% 1000ML 1,000 ML IVS ONE (19:00)
[2018-07-27] MEDS ORDERED: LEVOTHYROXINE SODIUM 0.025 MG TAB ONE (19:31)
[2018-07-27] MEDS ORDERED: GLIMEPIRIDE 4 MG PO SCH (21:00)
[2018-07-27] MEDS ORDERED: NON-FORMULARY MEDICATION 1 EA MIS (Metformin Hcl [Metformin Hcl] 1,000 MG) PO SCH (21:00)
[2018-07-27] MEDS: ENOXAPARIN SODIUM 40 MG/0.4 ML SYG SUBCU SCH (21:02)
[2018-07-27] MEDS: SODIUM CHLORIDE 0.9% (FLUSH) 10 ML SYG IV SCH (21:11)
[2018-07-27] MEDS ORDERED: GLIMEPIRIDE 2 MG TAB ONE (21:16)
[2018-07-27] MEDS ORDERED: metFORMIN HCL 500 MG TAB ONE (21:17)
[2018-07-27] MEDS ORDERED: metFORMIN HCL 500 MG TAB PO STA (21:23)
[2018-07-28] MEDS: VANCOMYCIN HCL INJ 2,000 MG in SODIUM CHLORIDE 0.9% 500ML 500 ML IVPB SCH ×2 (00:34→13:12)
[2018-07-28] MEDS: PANTOPRAZOLE SODIUM IV 40 MG VIAL IV SCH (06:06)
[2018-07-28] MEDS ORDERED: LEVOTHYROXINE SODIUM PO SCH (07:00)
[2018-07-28] MEDS: INSULIN LISPRO 100 UNITS/ML PEN SUBCU SCH ×4 (07:48→21:28)
[2018-07-28] MEDS: ASPIRIN/ACETAMINOPHEN/CAFFEINE 1 EA TAB PO PRN (07:51)
[2018-07-28] MEDS: LOSARTAN POTASSIUM 25 MG TAB PO SCH (09:03)
[2018-07-28] MEDS: SODIUM CHLORIDE 0.9% (FLUSH) 10 ML SYG IV SCH ×2 (09:04→20:46)
--- NOTE | 2018-07-28 12:05 | CT ---
EXAM DESCRIPTION: Maxillofacial w/wo Contrast CLINICAL HISTORY: facial cellulitis COMPARISON: None Available. TECHNIQUE: Contiguous axial images of the face were obtained before and after the administration of intravenous contrast. This exam was performed according to our departmental dose-optimization program, which includes automated exposure control, adjustment of the mA and/or kV according to patient size and/or use of iterative reconstruction technique. FINDINGS: Area of abnormal attenuation within the subcutaneous fat anterior to the left mandibular ramus compatible with an infectious/inflammatory process. Less than 1 cm area of low-attenuation within this area could represent a small amount of fluid/early or residual abscess formation is a consideration. Metallic artifact at patient's mouth degrades several images. Parotid glands are within normal limits. Retrobulbar fat is within normal limits. There is no orbital emphysema. There is atherosclerosis. Airway is patent. Prevertebral soft tissues are within normal limits. There is minimal mucoperiosteal thickening of the right maxillary sinus compatible with chronic sinusitis changes. IMPRESSION: Area of abnormal attenuation within the subcutaneous fat anterior to the left mandibular ramus compatible with an infectious/inflammatory process. Less than 1 cm area of low-attenuation within this area could represent a small amount of fluid/early or residual abscess formation is a consideration. Electronically signed by: Erik Goodwin MD 07/28/2018 12:03 PM [employer] PROCESSING TECHNICIAN Workstation: [id number]
[2018-07-28] MEDS ORDERED: SODIUM CHLORIDE 0.9% 500ML 500 ML ONE ×2 (13:01→19:12)
[2018-07-28] MEDS ORDERED: VANCOMYCIN HCL INJ 1,000 MG VIAL IVPB ONE ×2 (13:01→19:12)
[2018-07-28] MEDS ORDERED: traMADol HCL 50 MG TAB PO PRN (13:34)
[2018-07-28] MEDS: KETOROLAC TROMETHAMINE INJ 30 MG/ML VIAL IV SCH ×2 (14:40→19:55)
[2018-07-28] MEDS ORDERED: metFORMIN HCL 500 MG TAB PO SCH (17:00)
[2018-07-28] MEDS: GLIMEPIRIDE 2 MG TAB PO SCH (17:24)
[2018-07-28] MEDS ORDERED: LEVOTHYROXINE SODIUM 0.025 MG TAB ONE (19:11)
[2018-07-28] MEDS: ATORVASTATIN 20 MG TAB PO SCH (20:46)
[2018-07-28] MEDS: ENOXAPARIN SODIUM 40 MG/0.4 ML SYG SUBCU SCH (20:46)
--- NOTE | 2018-07-28 22:14 | PN ---
DATE: 07/28/18 SUPERVISING PHYSICIAN: Jarad Vincent M.D. SUBJECTIVE: The patient is sitting up in his bed. Family is at the bedside. We discussed his CT results. He says his face is still quite sore and has difficulty eating, but he feels like it is "coming to a head." Denies chest pain, shortness of breath, nausea, vomiting, diarrhea or constipation. OBJECTIVE: VITAL SIGNS: Temperature 98.1, heart rate 82, blood pressure 145/82, respiratory rate 20, O2 sat 95% on room air. RESPIRATORY: Essentially clear to auscultation bilaterally. CARDIAC: Regular rate and rhythm. GASTROINTESTINAL: Abdomen is soft, nondistended, non-tender. Bowel sounds are positive. SKIN: The area on his left cheek is less edematous than yesterday. The area of erythema is approximately 1.5 cm around a central draining pustule. There is very little drainage today. There is no fluctuance. NEUROLOGIC: He is awake, alert and oriented times three. LABORATORY: CBC is basically within normal limits. Blood sugars have run between 154 and 222. Electrolytes are within normal limits. CT of his face shows an area of abnormal attenuation within the subcutaneous fat anterior to the left mandibular ramus compatible with an infectious/inflammatory process. Less than 1 cm area of low attenuation within this area could represent a small amount of fluid/early or residual abscess formation is a consideration. All other labs and films have been reviewed via the EMR. ASSESSMENT: 1. Cellulitis of the face failed outpatient treatment. 2. Gastroesophageal reflux disease. 3. Hypothyroidism. 4. Hypertension. 5. Diabetes mellitus type 2. 6. Obstructive sleep apnea. 7. Hyperlipidemia. PLAN: We will continue present supportive care. I will continue his vancomycin per Pharmacy protocol. We will monitor his cultures as they become available. Hopefully will have a preliminary result tomorrow. Hopefully there will be a p.o. antibiotic to be discharged on by Monday, but it will depend on the culture results and when they are available. I have encourage good pulmonary hygiene. We will continue to monitor closely and follow as needed. [facility][id number] [facility]
[2018-07-29] MEDS: VANCOMYCIN HCL INJ 2,000 MG in SODIUM CHLORIDE 0.9% 500ML 500 ML IVPB SCH ×2 (00:54→13:40)
[2018-07-29] MEDS: KETOROLAC TROMETHAMINE INJ 30 MG/ML VIAL IV SCH ×3 (01:51→13:41)
[2018-07-29] MEDS: PANTOPRAZOLE SODIUM IV 40 MG VIAL IV SCH (06:11)
[2018-07-29] MEDS: LEVOTHYROXINE SODIUM 0.025 MG TAB PO SCH (06:11)
[2018-07-29] MEDS: GLIMEPIRIDE 2 MG TAB PO SCH ×2 (07:47→17:31)
[2018-07-29] MEDS: INSULIN LISPRO 100 UNITS/ML PEN SUBCU SCH ×4 (07:47→21:41)
[2018-07-29] MEDS: LOSARTAN POTASSIUM 25 MG TAB PO SCH (09:32)
[2018-07-29] MEDS: SODIUM CHLORIDE 0.9% (FLUSH) 10 ML SYG IV SCH ×3 (10:33→21:44)
[2018-07-29] MEDS ORDERED: SODIUM CHLORIDE 0.9% 500ML 500 ML ONE (13:30)
[2018-07-29] MEDS ORDERED: VANCOMYCIN HCL INJ 1,000 MG VIAL IVPB ONE (13:31)
--- NOTE | 2018-07-29 17:07 | PN ---
DATE: 07/29/18 SUPERVISING PHYSICIAN: Jarad Vincent M.D. SUBJECTIVE: The patient is sitting on his bed. He is cross-stitching. He has much less pain in his face than he did yesterday. The Toradol really helped. We discussed his discharge plan in that we are waiting for his cultures to be resulted prior to discharge. He denied any shortness of breath, chest pain, nausea, vomiting or diarrhea. OBJECTIVE: VITAL SIGNS: Temperature 99, heart rate 65, blood pressure 155/88, respiratory rate 20, O2 sat 94% on room air. RESPIRATORY: Essentially clear to auscultation bilaterally. Diminished at the bases. CARDIAC: Regular rate and rhythm. GASTROINTESTINAL: Abdomen is soft, nondistended, non-tender. Bowel sounds are positive. NEUROLOGIC: He is awake, alert and oriented times three. SKIN: The pustule on the left side of his face near his left lip is only minimally erythematous. He also has a small amount of edema to the left cheek that has improved significantly from yesterday. The pustule has no drainage. It is somewhat crusted over. It is still slightly tender to palpation. LABORATORY: Blood sugars have run between 114 and 222. Preliminary blood cultures show no growth after 48 hours. Wound culture is still pending. All other labs and films have been reviewed via the EMR. ASSESSMENT: 1. Cellulitis of the face failed outpatient treatment. 2. Gastroesophageal reflux disease. 3. Hypothyroidism. 4. Hypertension. 5. Diabetes mellitus type 2. 6. Obstructive sleep apnea. 7. Hyperlipidemia. PLAN: We will continue present supportive care, including encouraging good pulmonary hygiene. He will continue vancomycin per Pharmacy protocol. I will check his labs, including an ESR tomorrow. Monitor his wound cultures for assistance with antibiotic prescriptions on discharge. Will continue to monitor closely and follow as needed. [facility][id number] [facility]
[2018-07-29] MEDS: ATORVASTATIN 20 MG TAB PO SCH (21:42)
[2018-07-29] MEDS: ENOXAPARIN SODIUM 40 MG/0.4 ML SYG SUBCU SCH (21:43)
[2018-07-30] MEDS ORDERED: VANCOMYCIN HCL INJ 1,000 MG VIAL IVPB ONE ×2 (00:47→00:57)
[2018-07-30] MEDS ORDERED: SODIUM CHLORIDE 0.9% 500ML 500 ML ONE ×2 (00:47→00:57)
[2018-07-30] MEDS: VANCOMYCIN HCL INJ 2,000 MG in SODIUM CHLORIDE 0.9% 500ML 500 ML IVPB SCH (01:05)
[2018-07-30] MEDS: ASPIRIN/ACETAMINOPHEN/CAFFEINE 1 EA TAB PO PRN (02:27)
[2018-07-30] MEDS: LEVOTHYROXINE SODIUM 0.025 MG TAB PO SCH (06:00)
[2018-07-30] MEDS: PANTOPRAZOLE SODIUM IV 40 MG VIAL IV SCH (06:00)
[2018-07-30] MEDS: INSULIN LISPRO 100 UNITS/ML PEN SUBCU SCH (07:13)
[2018-07-30] MEDS: GLIMEPIRIDE 2 MG TAB PO SCH (07:17)
[2018-07-30] MEDS: LOSARTAN POTASSIUM 25 MG TAB PO SCH (08:00)
[2018-07-30] MEDS: SODIUM CHLORIDE 0.9% (FLUSH) 10 ML SYG IV SCH (08:00)
[2018-07-30 10:19] VITALS: BP 171/81; TEMP 98.3; O2SAT 95
--- NOTE | 2018-07-30 14:38 | DS ---
SUPERVISING PHYSICIAN: Moses Carreno MD ADMISSION DIAGNOSIS: 1. Cellulitis of the face, failed outpatient treatment. 2. Gastroesophageal reflux disease. 3. Hypothyroidism. 4. Hypertension. 5. Diabetes mellitus, type 2. 6. Obstructive sleep apnea. 7. Hyperlipidemia. DISCHARGE DIAGNOSIS: 1. Cellulitis of the face, failed outpatient treatment. 2. Gastroesophageal reflux disease. 3. Hypothyroidism. 4. Hypertension. 5. Diabetes mellitus, type 2. 6. Obstructive sleep apnea. 7. Hyperlipidemia. HOSPITAL COURSE: This is a 63-year-old male patient who had acne on his left lower lip/face. He stated he "popped it" on Monday prior to admission. On Monday, there was a lot of redness and drainage as well as some swelling. He saw Dr. Miranda on Monday and he was given Bactrim, however, he failed to improve over the next four days. Therefore, he was referred for direct admission for failed outpatient therapy. The wound was cultured upon admission. He was placed on IV vancomycin at that time. Over the next several days, his cellulitis improved to near resolution. His culture came back with sensitivities as MRSA with sensitivity to Rifampin, Bactrim and vancomycin. I did discuss with Dr. Miranda the cultures and sensitivities and he agreed the patient could go home back on the Bactrim that he was on prior to admission due to the fact that he is greatly improved. Additionally, we will add doxycycline to his therapy. Dr. Miranda wants to see him towards the end of this week and I have relayed that to the patient. Activity as tolerated. Diet will not be changed. I have sent prescription for four more days of Bactrim to [facility] as well as 10 days of doxycycline. [id number]
== END 2018-07-30 12:00 | disposition home or self-care (01) | DRG 603 ==
LOC: MS 10:16
PROVIDERS: ADMIT Nurse Practitioner Acute Care; ATTEND Nurse Practitioner
DX: L03.211 Cellulitis of face (principal); K21.9 Gastro-esophageal reflux disease without esophagitis; E03.9 Hypothyroidism, unspecified; E78.5 Hyperlipidemia, unspecified; G47.33 Obstructive sleep apnea (adult) (pediatric); I10 Essential (primary) hypertension; E11.9 Type 2 diabetes mellitus without complications; K76.0 Fatty (change of) liver, not elsewhere classified; E29.1 Testicular hypofunction; Z79.84 Long term (current) use of oral hypoglycemic drugs; Z88.5 Allergy status to narcotic agent; Z87.891 Personal history of nicotine dependence

== ENCOUNTER → 2019-06-05 | Outpatient (CLI) | payer BC | LOC: GMAL 10:23 | PROVIDERS: ATTEND Family Medicine | DX: Z00.01 Encounter for general adult medical examination with abnormal findings (principal); E53.8 Deficiency of other specified B group vitamins; E55.9 Vitamin D deficiency, unspecified ==

== ENCOUNTER 2019-07-11 10:32 | Inpatient (IN) | payer BC ==
--- NOTE | 2019-07-11 11:24 | CT ---
EXAM DESCRIPTION: Chest w/wo Contrast CLINICAL HISTORY: VIRAL PNEUMONIA COMPARISON: None. TECHNIQUE: Pre and postcontrast CT images of the chest are obtained using standard imaging protocol. This exam was performed according to our departmental dose-optimization program, which includes automated exposure control, adjustment of the mA and/or kV according to patient size and/or use of iterative reconstruction technique . FINDINGS: Heart shows severe coronary artery calcifications. Scattered calcified plaque of the thoracic aorta. Mild scattered calcific atherosclerotic disease of the thoracic aorta without aneurysmal dilatation. Mild right paratracheal lymphadenopathy. Largest lymph node measures 12 mm short axis. Right greater than left hilar lymph nodes are seen measuring maximum 2.1 x 1.4 cm on the right. Trace bilateral pleural effusions in the dependent portions of the chest are seen. Lungs are normally aerated. Scattered patchy areas of alveolar airspace densities are seen. Several ill-defined noncalcified pulmonary nodules are seen measuring maximum 10 mm. Alveolar airspace densities are more pronounced in the lower lobes. Scattered areas of groundglass attenuation in the pulmonary parenchyma seen. No bronchiectasis. Mild bronchial wall thickening in the lower lobes peripherally. Osseous structures show no aggressive bony lesions. Mild spondylitic changes of the spine. Visualized upper abdomen shows enlarged liver measuring 19.3 cm with heterogeneous decreased attenuation compatible with fatty infiltration. IMPRESSION: Bilateral airspace pulmonary infiltrates consistent with bilateral pneumonia. Consider atypical pneumonia or viral pneumonitis. Multiple ill-defined pulmonary nodules. Most severe: 10.0 mm solid pulmonary nodule. Recommend a non-contrast Chest CT at 3-6 months, then consider another non-contrast Chest CT at 18-24 months. These guidelines do not apply to immunocompromised patients and patients with cancer. Follow up in patients with significant comorbidities as clinically warranted. For lung cancer screening, adhere to Lung-RADS guidelines. Reference: Radiology. 2017; 284(1):228-43. Trace bilateral pleural effusions. Enlarged mediastinal and hilar lymphadenopathy is likely reactive. Electronically signed by: Vitaliy Dietrich MD 07/11/2019 11:23 AM MANUFACTURING PLANT TECHNICIAN
--- NOTE | 2019-07-11 15:08 | HP ---
SUPERVISING PHYSICIAN: Shayne Euceda MD CHIEF COMPLAINT: Upper respiratory symptoms, fever and flu, type A. HISTORY OF PRESENT ILLNESS: This is a 64-year-old male patient who was seen at [facility] today. Due to continuing cough and upper respiratory like symptoms, he had been seen in clinic on Monday and was diagnosed with flu A. He had a temperature that was 100.7 in the clinic. He was given some azithromycin and injection of Rocephin and cough medicine. He had a chest x-ray at that time showing bibasilar pneumonia. He actually had been treated for a cough by his primary care physician, Dr. Miranda, since April and there were some questionable pulmonary nodules on his chest CT. He returned to the clinic today and his symptoms were much worse. A CT scan of his lungs was also completed and showed bilateral airspace pulmonary infiltrates consistent with bilateral pneumonia, atypical pneumonia or viral pneumonitis with multiple ill- defined pulmonary nodules, most severe is 10 mm solid pulmonary nodule, recommended non-contrast CT in 3 to 6 months. I was called for direct admission to the hospital for failed outpatient treatment. The patient was admitted in stable condition to the hospital. PAST MEDICAL HISTORY: 1. Diabetes mellitus, type 2. 2. Hyperlipidemia. 3. Hypertension. 4. Asthma. 5. Fatty liver disease. PAST SURGICAL HISTORY: 1. Tonsillectomy. 2. Some teeth removal. 3. Left hand surgery. 4. Left carpal tunnel release. 5. Cholecystectomy. OUTPATIENT MEDICATIONS: Per the EMR and awaiting verification. ALLERGIES: TESSALON PERLES, MORPHINE AND OPIOIDS. FAMILY HISTORY: Positive for prostate cancer and hypertension. SOCIAL HISTORY: He is . He lives in [place]. He quit smoking in 2013. He drinks alcoholic beverages very infrequently and denies any illicit drug use. 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 REVIEW OF SYSTEMS: GENERAL: Positive for for fever, fatigue, negative for weight changes. HEENT: Positive for sinus symptoms, rhinorrhea. Negative for ear pain, vision changes or sore throat. RESPIRATORY: Positive for wheezing, coughing or shortness of breath. CARDIAC: Negative for chest pain, palpitations or tachycardia. GASTROINTESTINAL: Negative for nausea, vomiting, diarrhea, constipation. GENITOURINARY: Negative for hematuria, dysuria or polyuria. SKIN: Negative for lesions or rashes. NEUROLOGIC: Negative for headache, weakness or seizures. PHYSICAL EXAMINATION: VITAL SIGNS: Temperature 96.8. Heart rate 118. Blood pressure 171/99. Respiratory rate 15. O2 saturation 98% on room air. GENERAL: This is a 64-year-old male patient who is sitting up in his chair in his hospital room. He is in mild respiratory distress. HEENT: Normocephalic, atraumatic. Pupils are equal and reactive. Oropharynx is clear. NECK: Supple without mass. RESPIRATORY: Diminished breath sounds throughout with rhonchi scattered throughout and a few expiratory wheezes. CHEST: There is equal rise and fall of the chest with inspiration and expiration. CARDIOVASCULAR: Regular rate and rhythm. GASTROINTESTINAL: Abdomen is soft, nondistended, nontender. Bowel sounds are positive. EXTREMITIES: No cyanosis, clubbing or edema. NEUROLOGIC: Awake, alert and oriented times three. Cranial nerves II-XII are grossly intact as tested. LABORATORY: His CBC is unremarkable. Sodium 133. The remained of his electrolytes are basically within normal limits. Bilirubin is slightly high at 1.2. AST is elevated at 46. CT is as per history of present illness. IMPRESSION: 1. Viral pneumonitis versus bilateral bibasilar bacterial pneumonia, most likely community acquired. He has failed outpatient treatment. 2. Multiple pulmonary nodules, largest being 10 mm, per CT scan. 3. Recent diagnosis of influenza, type 1. 4. Diabetes mellitus, type 2. 5. Hypertension. 6. Asthma. 7. Cough that is chronic and has been going on since April. PLAN: The patient has been admitted to the hospital. The pneumonia guidelines have been initiated. We will give aggressive pulmonary hygiene as well as start him on IV Levaquin. He will have Mucinex for cough and I will also give him some Tamiflu. Lab and chest x-ray will be ordered for tomorrow. His home medications will be restarted as soon as they have been verified. I put him on sliding scale insulin protocol, Lovenox for DVT prophylaxis. I do have concerns that he is a previous smoke and also may have some environmental factors contributing to his illness as he works as a pipeline welder at a [employer]. He is exposed to metal dust/shavings. Will continue to monitor the patient closely and follow as needed. [facility][id number] [facility]
[2019-07-11] MEDS ORDERED: SODIUM CHLORIDE 0.9% (FLUSH) 10 ML SYG IV PRN (16:00)
[2019-07-11] MEDS ORDERED: ONDANSETRON INJ 4 MG/2 ML VIAL IV PRN (16:00)
[2019-07-11] MEDS ORDERED: IV SET AND CAP CHANGE INJ INJ SCH (16:00)
[2019-07-11] MEDS ORDERED: ALBUTEROL SULFATE 2.5 MG/3 ML VIAL NEB PRN (16:10)
[2019-07-11] MEDS ORDERED: GLUCAGON INJ 1 MG VIAL SUBCU PRN (16:10)
[2019-07-11] MEDS ORDERED: DEXTROSE 10% 500ML IVPB PRN (16:10)
[2019-07-11] MEDS ORDERED: DEXTROSE 50% 25 GM/50 ML SYG IV PRN (16:29)
[2019-07-11] MEDS ORDERED: SODIUM CHL 0.9% 50ML MIN-BAG+ 50 ML IVPB ONE ×2 (16:34→18:55)
[2019-07-11] MEDS ORDERED: CEFEPIME 2 GM VIAL ONE ×2 (16:34→18:56)
[2019-07-11] MEDS: levoFLOXacin 750MG IV 750 MG in PREMIX BAG 1 BAG IVPB SCH (16:36)
[2019-07-11] MEDS: INSULIN LISPRO 100 UNITS/ML PEN SUBCU SCH ×2 (16:37→21:02)
[2019-07-11] MEDS: CEFEPIME 2 GM in SODIUM CHL 0.9% 50ML MIN-BAG+ 50 ML IVPB SCH (16:40)
[2019-07-11] MEDS: GLIMEPIRIDE 2 MG TAB PO SCH (16:43)
[2019-07-11] MEDS: ENOXAPARIN SODIUM 40 MG/0.4 ML SYG SUBCU SCH (16:43)
[2019-07-11] MEDS: metFORMIN HCL 500 MG TAB PO SCH (16:51)
[2019-07-11] MEDS: SODIUM CHLORIDE 0.9% (FLUSH) 10 ML SYG IV SCH (20:31)
[2019-07-11] MEDS: ALBUTEROL SULFATE 2.5 MG/3 ML VIAL NEB SCH (20:33)
[2019-07-11] MEDS: guaiFENesin ER TAB 600 MG TAB PO SCH (21:06)
[2019-07-11] MEDS: OSELTAMIVIR 75 MG CAP PO SCH (21:07)
[2019-07-12] MEDS ORDERED: LEVOTHYROXINE SODIUM 0.025 MG TAB ONE (02:47)
[2019-07-12] MEDS: CEFEPIME 2 GM in SODIUM CHL 0.9% 50ML MIN-BAG+ 50 ML IVPB SCH ×2 (03:52→16:37)
[2019-07-12] MEDS: LEVOTHYROXINE SODIUM 0.025 MG TAB PO SCH (06:29)
[2019-07-12] MEDS: INSULIN LISPRO 100 UNITS/ML PEN SUBCU SCH ×4 (07:23→20:48)
[2019-07-12] MEDS: GLIMEPIRIDE 2 MG TAB PO SCH ×2 (07:28→16:37)
[2019-07-12] MEDS: ALBUTEROL SULFATE 2.5 MG/3 ML VIAL NEB SCH ×4 (08:16→19:56)
[2019-07-12] MEDS: guaiFENesin ER TAB 600 MG TAB PO SCH ×2 (09:02→20:49)
[2019-07-12] MEDS: SODIUM CHLORIDE 0.9% (FLUSH) 10 ML SYG IV SCH ×2 (09:02→20:49)
[2019-07-12] MEDS: OSELTAMIVIR 75 MG CAP PO SCH ×2 (09:02→20:49)
--- NOTE | 2019-07-12 11:22 | PN ---
SUPERVISING PHYSICIAN: Shayne Euceda MD DATE: 07/12/19 SUBJECTIVE: The patient is sitting up in his room in a chair. He is talking to his . He does not have oxygen on at this time and he seems to be in no distress. He does say he gets short of breath with exertion and he also feels like he may sleep better with oxygen, at least at this time. Otherwise, no chest pain, nausea, vomiting, diarrhea or constipation. OBJECTIVE: VITAL SIGNS: Temperature 98. Heart rate 88. Blood pressure 135/76. Respiratory rate 18. O2 saturation 94% on room air. RESPIRATORY: A few scattered rhonchi throughout. No expiratory wheezing. He is diminished at the bases. CARDIAC: Regular rate and rhythm. GASTROINTESTINAL: Abdomen is soft, nondistended, nontender. Bowel sounds are positive. NEUROLOGIC: Awake, alert and oriented times three. LABORATORY: CBC is unremarkable. Chemistry shows electrolytes basically within normal limits with BUN 14, creatinine 0.95. Glucose 115, bilirubin slightly improved to 1.1. Preliminary blood cultures are negative to date. Sputum culture is pending. His chest x-ray report is unavailable. ASSESSMENT: 1. Viral pneumonitis versus bilateral bibasilar bacterial pneumonia, most likely community acquired. He has failed outpatient treatment. 2. Multiple pulmonary nodules, largest being 10 mm, per CT scan. 3. Recent diagnosis of influenza, type 1. 4. Diabetes mellitus, type 2. 5. Hypertension. 6. Asthma. 7. Cough that is chronic and has been going on since April. PLAN: We will continue present supportive care including his IV antibiotics and his aggressive pulmonary hygiene. Clinically, he is improved and I do have some concerns about his pulmonary nodules and we recommend that he see a inspector firearms on discharge. If he continues to need oxygen, I will do an ambulation study, but for now I have encouraged him to get up and walk. We will continue to monitor the patient closely and follow as needed. [facility][id number] [facility]
[2019-07-12] MEDS ORDERED: SODIUM CHL 0.9% 50ML MIN-BAG+ 50 ML IVPB ONE ×2 (16:19→19:03)
[2019-07-12] MEDS ORDERED: CEFEPIME 2 GM VIAL ONE ×2 (16:19→19:04)
[2019-07-12] MEDS: levoFLOXacin 750MG IV 750 MG in PREMIX BAG 1 BAG IVPB SCH (16:37)
[2019-07-12] MEDS: ENOXAPARIN SODIUM 40 MG/0.4 ML SYG SUBCU SCH (16:38)
[2019-07-13] MEDS: CEFEPIME 2 GM in SODIUM CHL 0.9% 50ML MIN-BAG+ 50 ML IVPB SCH ×2 (04:13→17:27)
[2019-07-13] MEDS: LEVOTHYROXINE SODIUM 0.025 MG TAB PO SCH (06:34)
[2019-07-13] MEDS: INSULIN LISPRO 100 UNITS/ML PEN SUBCU SCH ×4 (07:22→21:20)
[2019-07-13] MEDS: GLIMEPIRIDE 2 MG TAB PO SCH ×2 (07:32→17:20)
[2019-07-13] MEDS: ALBUTEROL SULFATE 2.5 MG/3 ML VIAL NEB SCH ×4 (09:30→20:17)
[2019-07-13] MEDS: OSELTAMIVIR 75 MG CAP PO SCH ×2 (09:48→20:40)
[2019-07-13] MEDS: SODIUM CHLORIDE 0.9% (FLUSH) 10 ML SYG IV SCH ×2 (09:48→20:40)
[2019-07-13] MEDS: guaiFENesin ER TAB 600 MG TAB PO SCH ×2 (09:48→20:40)
[2019-07-13] MEDS: levoFLOXacin 750MG IV 750 MG in PREMIX BAG 1 BAG IVPB SCH (15:26)
[2019-07-13] MEDS ORDERED: methylPREDNISolone SODIUM SUC 125 MG/2 ML VIAL IV ONE (15:41)
[2019-07-13] MEDS: ENOXAPARIN SODIUM 40 MG/0.4 ML SYG SUBCU SCH (17:20)
[2019-07-13] MEDS ORDERED: metFORMIN HCL 500 MG TAB ONE (17:21)
[2019-07-13] MEDS ORDERED: SODIUM CHL 0.9% 50ML MIN-BAG+ 50 ML IVPB ONE ×2 (17:21→19:43)
[2019-07-13] MEDS ORDERED: CEFEPIME 2 GM VIAL ONE ×2 (17:22→19:43)
[2019-07-13] MEDS: metFORMIN HCL 500 MG TAB PO SCH (17:22)
[2019-07-14] MEDS: CEFEPIME 2 GM in SODIUM CHL 0.9% 50ML MIN-BAG+ 50 ML IVPB SCH (04:18)
[2019-07-14] MEDS: LEVOTHYROXINE SODIUM 0.025 MG TAB PO SCH (06:02)
[2019-07-14] MEDS: INSULIN LISPRO 100 UNITS/ML PEN SUBCU SCH ×2 (07:18→11:41)
[2019-07-14] MEDS ORDERED: metFORMIN HCL 500 MG TAB ONE (07:20)
[2019-07-14] MEDS: metFORMIN HCL 500 MG TAB PO SCH (07:29)
[2019-07-14] MEDS: GLIMEPIRIDE 2 MG TAB PO SCH (07:29)
--- NOTE | 2019-07-14 08:18 | RAD ---
: 1955. TECHNIQUE: PA and lateral views of the chest. Comparison: July 12, 2019 chest x-ray and July 11, [address] that showed multifocal infiltrates. Clinical history: pna. Heart size: Normal. Lungs: Ill-defined infiltrates at the lung bases predominantly on the left radiographically with some interval clearing. Pleura: No pleural effusion. No pneumothorax. Mediastinum and bob: Unremarkable. Skeletal: Unremarkable. IMPRESSION: 1. Improving aeration at the left base. Electronically signed by: Gal Casiano MD 07/14/2019 8:16 AM MANAGER TECHNICAL SERVICES
[2019-07-14] MEDS: ALBUTEROL SULFATE 2.5 MG/3 ML VIAL NEB SCH ×2 (08:25→14:16)
[2019-07-14] MEDS: OSELTAMIVIR 75 MG CAP PO SCH (08:44)
[2019-07-14] MEDS: SODIUM CHLORIDE 0.9% (FLUSH) 10 ML SYG IV SCH (08:44)
[2019-07-14] MEDS: guaiFENesin ER TAB 600 MG TAB PO SCH (08:44)
--- NOTE | 2019-07-14 09:10 | PN ---
SUPERVISING PHYSICIAN: Shayne Euceda MD DATE: 07/13/2019 SUBJECTIVE: The patient is sitting up on the side of the bed. He is just starting to ambulate in the halls and does get does get short of breath but it is much less severe. He is still coughing up quite a bit but has no complaints of chest pain, nausea or vomiting or constipation. OBJECTIVE: VITAL SIGNS: Temperature 97.7. Heart rate 85. Blood pressure 145/85. Respiratory rate 18. O2 saturation 96% on room air. RESPIRATORY: He has a few expiratory wheezes on his upper and lower left lung with a few scattered rhonchi throughout, somewhat diminished at the bases. CARDIAC: Regular rate and rhythm. GASTROINTESTINAL: Abdomen is soft, nondistended, nontender. Bowel sounds are positive. NEUROLOGIC: Awake, alert and oriented times three. LABORATORY: Blood sugars have run between 87 and 261. His preliminary blood cultures show no growth after 48 hours. Sputum culture is pending. All other labs and films have been reviewed via the EMR. ASSESSMENT: 1. Viral pneumonitis versus bilateral bibasilar bacterial pneumonia, most likely community acquired. He has failed outpatient treatment. 2. Multiple pulmonary nodules, largest being 10 mm, per CT scan. 3. Recent diagnosis of influenza, type 1. 4. Diabetes mellitus, type 2. 5. Hypertension. 6. Asthma. 7. Cough that is chronic and has been going on since April. PLAN: We will continue present supportive care and continue his aggressive pulmonary hygiene. I will order lab and x-ray for in the morning. I will need a pulmonary consultation on discharge. I will also follow his cultures as the results become available. I will give him a small dose of IV steroids. I believe will help with his wheezing. Hopefully, we can discharge tomorrow. We will continue to monitor the patient closely and follow as needed. [facility][id number] [facility]
[2019-07-14] MEDS ORDERED: levoFLOXacin 750MG IV 750 MG in PREMIX BAG 1 BAG IVPB ONE (13:00)
[2019-07-14 14:15] VITALS: BP 132/75; TEMP 98.4; O2SAT 97
[2019-07-18] MEDS ORDERED: NON-FORMULARY MEDICATION 1 EA MIS (Dulaglutide [Trulicity] 0.75 MG) SC SCH (09:00)
--- NOTE | 2019-07-19 13:45 | DS ---
SUPERVISING PHYSICIAN: Shayne Euceda MD DISCHARGE DIAGNOSIS: 1. Viral pneumonitis versus bilateral bibasilar bacterial pneumonia, most likely community acquired. He has failed outpatient treatment. 2. Multiple pulmonary nodules, largest being [address] scan. 3. Recent diagnosis of influenza, type 1. 4. Diabetes mellitus, type 2, on medications. 5. Hypertension, on medications. 6. Asthma. 7. Cough that is chronic and has been going on since April. HISTORY OF PRESENT ILLNESS: This is a 64-year-old male patient who was seen at [facility] on the day of admission. He had a continuing cough with upper respiratory infection like symptoms. He had been seen in clinic on the prior Monday and was diagnosed with flu A. He had a temperature that was 100.7 in the clinic. He was given a Z-Trav and injection of Rocephin as well as cough medicine on Monday. His chest x-ray at that time showed bibasilar pneumonia. He actually had been treated for a cough and upper respiratory type symptoms by his primary care physician, Dr. Miranda, since April and there were some questionable pulmonary nodules on his chest CT. On his return visit on the date of admission to the hospital, he was seen in clinic and his symptoms were much worse. A CT scan of his lungs was also completed and showed bibasilar airspace pulmonary infiltrates consistent with bilateral pneumonia, atypical pneumonia or viral pneumonitis with multiple ill-defined pulmonary nodules, most severe is 10 mm solid pulmonary nodule, recommended non-contrast followup CT in 3 to 6 months. He was directly admitted in stable condition to the hospital. HOSPITAL COURSE: He was admitted to the hospital and pneumonia guidelines were initiated. He was given aggressive pulmonary hygiene including scheduled and p.r.n. nebulizer treatments as well as IV Levaquin. He had Mucinex for his cough. He was also continued on his Tamiflu. His lab and x-rays were monitored closely. His home medications were restarted. He was given a sliding protocol and Lovenox for DVT prophylaxis. He has a history of smoking previously, but there were also some environment factors to consider that may have contributed to his illness. 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 He progressively improved over the next 24 to 48 hours. Initially, he required oxygen and then that was titrated off. Although he continued with shortness of breath with exertion, after another 24 hours of treatment, he was able to walk in the hallways without oxygen and without getting short of breath. He was encouraged to see pulmonary on discharge. He continued to have a cough that was treated with Tessalon Perles. He also does continue to complain of shortness of breath, much less severe, and his oxygen saturations remained stable in the low to mid 90s. His cultures were not complete as of discharge and today, he will be discharged home in stable condition. LABORATORY: WBCs remained stable at 6,100 with a stable hemoglobin at 15.5 and hematocrit 45.6. Blood sugars ran between 63 and 261. Electrolytes were basically within normal limits. His bilirubin was slightly elevated, but down to 1.1. His blood cultures were negative after 3 days. His sputum culture was pending. RADIOLOGY: Reports are per the history of present illness. His followup chest x-ray showed improving aeration of the left base. DISCHARGE PLAN: The patient will be discharged in stable condition. He is to resume his previous diet and increase his activity as tolerated. He is to followup with Dr. Miranda on 07/17/19 at 9:45 AM. In addition to his routine medications, he is to continue 5 additional days of Levaquin 750. He is to return to the hospital or followup with Dr. Miranda for any problems or complications. DISCHARGE MEDICATIONS: 1. Glimepiride. 2. Levothyroxine. 3. Excedrin Extra Strength. 4. Metformin. 5. Nitroglycerin. 6. Testosterone Cypionate. 7. Trulicity. 8. Guaifenesin. 9. Levofloxacin. #[id number] [facility]
== END 2019-07-14 14:45 | disposition home or self-care (01) | DRG 195 ==
LOC: CT 10:32 → MS 14:55
PROVIDERS: ADMIT Nurse Practitioner Acute Care; ATTEND Nurse Practitioner Acute Care
PROC: BW241ZZ Computerized Tomography (CT Scan) of Chest and Abdomen using Low Osmolar Contrast (ICD-10-PCS; principal; 2019-07-11)
DX: J10.00 Influenza due to other identified influenza virus with unspecified type of pneumonia (principal); J15.9 Unspecified bacterial pneumonia; R91.1 Solitary pulmonary nodule; E11.9 Type 2 diabetes mellitus without complications; I10 Essential (primary) hypertension; J45.909 Unspecified asthma, uncomplicated; E78.5 Hyperlipidemia, unspecified; K76.0 Fatty (change of) liver, not elsewhere classified; X58.XXXD Exposure to other specified factors, subsequent encounter; Z87.891 Personal history of nicotine dependence; Z88.8 Allergy status to other drugs, medicaments and biological substances; Z88.5 Allergy status to narcotic agent

== ENCOUNTER → 2019-08-08 | Outpatient (CLI) | payer BC | LOC: ECHO 12:51 | PROVIDERS: ATTEND Internal Medicine Cardiovascular Disease | DX: I51.89 Other ill-defined heart diseases (principal); I50.1 Left ventricular failure, unspecified; I51.7 Cardiomegaly; I50.30 Unspecified diastolic (congestive) heart failure; R06.09 Other forms of dyspnea ==

== ENCOUNTER → 2019-11-19 | Outpatient (CLI) | payer BC ==
--- NOTE | 2019-11-19 08:25 | CT ---
EXAM DESCRIPTION: Chest w/o Contrast CLINICAL HISTORY: MULTIPLE PULMONARY NODULES COMPARISON: July 11, 2019 TECHNIQUE: Chest CT was performed without IV contrast. This exam was performed according to our departmental dose-optimization program, which includes automated exposure control, adjustment of the mA and/or kV according to patient size and/or use of iterative reconstruction technique. FINDINGS: Coronary artery calcifications. No thoracic aortic aneurysm. No hiatal hernia. No pleural or pericardial effusion. Limited sensitivity for detection of adenopathy due to lack of IV contrast, no mediastinal or hilar adenopathy is seen. The central airways are clear. No airspace consolidation or lung mass. No suspicious lung nodule with interval resolution of multiple ill-defined nodular lesion seen in both lungs on the prior chest CT. Visualized portions of the upper abdomen are unremarkable for noncontrast technique. No fracture or pneumothorax. IMPRESSION: No suspicious lung nodule with interval resolution of multiple ill-defined nodules seen on patient's prior chest CT. Coronary artery disease. Electronically signed by: Shamar Rosa MD 11/19/2019 8:23 AM CDT
== END ==
LOC: CT 07:52
PROVIDERS: ATTEND Internal Medicine
DX: J98.4 Other disorders of lung (principal)

== ENCOUNTER → 2019-12-26 | Outpatient (CLI) | payer BC ==
--- NOTE | 2019-12-26 11:13 | US ---
EXAM DESCRIPTION: Carotid Duplex: ULTRASOUND. CLINICAL HISTORY: 64 years Male CAROTID ARTERY STENOSIS COMPARISON: None. TECHNIQUE: Transcutaneous scanning utilizing malik-scale and Doppler modes to evaluate the bilateral carotid systems and vertebral arteries. Percentage of diameter of stenosis or no stenosis recorded will be based upon NASCET criteria. FINDINGS: Peak systolic/end diastolic (CM-Sec) CCA Right 73/8 Left 73/20. ICA Right proximal 42/9, distal 60/10. Left proximal 44/10, Distal 44/15. Vertebral Right 41/13 Left 28/0. ECA (PS Only) Right tab 63 left 64. ICA/CCA peak systolic ratio: Right 0.8 Left 0.6 ICA/CCA end diastolic ratio: Right 1.3 Left 0.5 Vertebral arteries: antegrade flow. Comments: Minimal atherosclerotic calcification. Spectral broadening in the mid and distal ICAs bilaterally. IMPRESSION: 1. Doppler evaluation of the bilateral carotid systems and vertebral arteries shows no hemodynamically significant stenoses (less than 70%). 2. No significant amount of plaque in the carotid arteries bilaterally. Bilateral vertebral arteries showed antegrade-cephalad flow. Electronically signed by: Elliott Adams MD 12/26/2019 11:11 AM CDT
== END ==
LOC: US 10:09
PROVIDERS: ATTEND Thoracic Surgery (Cardiothoracic Vascular Surgery)
DX: I65.29 Occlusion and stenosis of unspecified carotid artery (principal)

== ENCOUNTER → 2020-01-17 | Outpatient (CLI) | payer BC ==
--- NOTE | 2020-01-17 15:00 | US ---
EXAM DESCRIPTION: Venous,Lower Extremity RT: ULTRASOUND. CLINICAL HISTORY: SWELLING OF LOWER LIMB COMPARISON: None Available. TECHNIQUE: Killian-scale and doppler sonographic evaluation of the deep venous system of the right lower extremity. FINDINGS: Doppler evaluation shows normal color flow and normal phasicity and augmentation of the right common femoral vein, femoral vein, popliteal vein, greater saphenous vein, junction with the CFV. Also normal color flow and normal phasicity and augmentation of the peroneal, and posterior tibial vein. The right lower extremity deep veins were completely compressible; normal occlusion with transducer pressure. Killian-scale survey showed no echogenic thrombus within these veins. Interstitial edema in the adipose subcutaneous layer. IMPRESSION: 1. Duplex ultrasound evaluation of the right lower extremity deep venous system showing no evidence of thrombosis. 2. Interstitial edema in the subcutaneous adipose layer. Electronically signed by: Elliott Adams MD 01/17/2020 2:58 PM CDT
== END ==
LOC: US 14:23
PROVIDERS: ATTEND Internal Medicine Cardiovascular Disease
DX: R60.9 Edema, unspecified (principal)

== ENCOUNTER → 2020-02-04 | Outpatient (CLI) | payer BC | LOC: GMAL 10:34 | PROVIDERS: ATTEND Family Medicine | DX: E03.8 Other specified hypothyroidism (principal); R60.9 Edema, unspecified; E78.2 Mixed hyperlipidemia; E11.42 Type 2 diabetes mellitus with diabetic polyneuropathy; Z79.899 Other long term (current) drug therapy ==

== ENCOUNTER → 2020-06-09 | Outpatient (CLI) | payer BC | LOC: GMAL 10:17 | PROVIDERS: ATTEND Family Medicine | DX: Z00.01 Encounter for general adult medical examination with abnormal findings (principal) ==